=== PATIENT | male | born 1980 | race Two or more races ===

== ENCOUNTER 2017-06-22 13:00 | Emergency (ER) | payer BC ==
[2017-06-22 13:14] VITALS: BMI 41.8
[2017-06-22 13:35] VITALS: TEMP 98.5
--- NOTE | 2017-06-22 13:42 | PDOC ---
History of Present Illness - General Chief Complaint: Blood Pressure Problem Stated Complaint: HTN Time Seen by Provider: 06/22/17 13:10 History Source: Patient Exam Limitations: No Limitations - History of Present Illness Initial Comments: 06/22/17 13:37 36y M hx of s/p gastric bypass, htn (previously on meds, but now controlled w/ diet) presents with htn - the pt states he has recently been feeling flushed, lightheaded, tingling extremities which he attributes to his HTN - he has been checking his BP and notes it has been elevated to the 140s/100s, he took his fathers norvasc this morning but bp was 160s-170s so he came to the ED for evaluation. the pt also endorses occaisonal non exertional cp (typically at night) that is worse when he is lying on his side. 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 pts PMD is dr. webber social: former smoker, does not use any recrational drugs Past History - Past Medical History Allergies/Adverse Reactions: Allergies Allergy/AdvReac Type Severity Reaction Status Date / Time No Known Allergies Allergy Verified 06/22/17 13:14 Home Medications: Ambulatory Orders NK [No Known Home Medication] 06/22/17 Anemia: No Asthma: Yes Cancer: No Cardiac Disorders: No CVA: No COPD: Yes CHF: No Dementia: No Diabetes: No GI Disorders: No Disorders: No HTN: Yes Hypercholesterolemia: No Liver Disease: Yes (cirrhosis) Seizures: No Thyroid Disease: No - Surgical History Abdominal Surgery: No Appendectomy: No Cardiac Surgery: No Cholecystectomy: No Lung Surgery: No Neurologic Surgery: No Orthopedic Surgery: No - Suicide/Smoking/Psychosocial Hx Smoking Status: Yes Smoking History: Former smoker Have you smoked in the past 12 months: No Number of Cigarettes Smoked Daily: 0 Information on smoking cessation initiated: No Hx Alcohol Use: No Drug/Substance Use Hx: No Substance Use Type: None Hx Substance Use Treatment: No Review of Systems - Review of Systems Able to Perform ROS?: Yes Comments:: 06/22/17 13:39 Constitutional - no reported Fever, Chills, HEENT: no reported vision changes, sore throat Respiratory: no reported cough, sob, hemoptysis Cardiac: + light headedness,chest pain, no reported palpitations, leg swelling Abd/GI: no reported abd pain, nausea, vomiting, blood per rectum, melena, diarrhea : no reported dysuria, frequency, discharge Musculskelatal - no reported back pain, joint swelling skin - no reported bruising, erythema, rash neurological: +extermity tingling no reported headache, numbness, focal weakness , ataxia, hematologic: no reported anemia, easy bruising, easy bleeding *Physical Exam - Vital Signs Last Vital Signs Temp Pulse Resp BP Pulse Ox 98.5 F 87 13 150/112 100 06/22/17 13:25 06/22/17 13:25 06/22/17 13:25 06/22/17 13:25 06/22/17 13:25 - Physical Exam Comments: 06/22/17 13:41 GENERAL: The patient is awake, alert, and fully oriented, Nontoxic - in no acute distress. HEAD: Normocephalic, atraumatic. EYES: extraocular movements intact, sclera anicteric, conjunctiva clear. ENT: Normal voice, Moist mucous membranes. NECK: Normal range of motion, supple LUNGS: Breath sounds equal, clear to auscultation bilaterally. No wheezes, no rhonchi, no rales. HEART: Regular rate and rhythm, normal S1 and S2 without murmur, rub or gallop. ABDOMEN: Soft, nontender, normoactive bowel sounds. No guarding, no rebound. . No CVA tenderness EXTREMITIES: Normal range of motion, no edema. No clubbing or cyanosis. No cords, erythema, or tenderness. NEUROLOGICAL: No facial assymetry, Normal speech, PSYCH: Normal mood, normal affect. SKIN: Warm, Dry, normal turgor, Heart Score/ECG Review - ECG Impressions Comment:: 06/22/17 14:48 Twelve-lead EKG was performed and reviewed by me. There is normal sinus rhythm with a normal rate. Rate of 92 The axis is normal. The intervals are normal. There is normal R wave progression There are no ST or T wave abnormalities. Impression: Normal twelve-lead EKG ED Treatment Course - LABORATORY CBC & Chemistry Diagram: 06/22/17 14:00 06/22/17 14:00 Medical Decision Making - Medical Decision Making 06/22/17 13:41 suspect htn, his cp seems msk - no exertional or sypmtmos suggestive of acs will obtain ekg will ck labs to r/o anemia, metabolic dernagement pts spb is slightly high here but anticipate d/c with pmd fu and will have pt monitor bp as outpatient 06/22/17 14:46 The patient's blood work is unremarkable Will discharge the patient follow-up with his primary care doctor Return precautions were discussed I discussed the physical exam findings, ancillary test results and final diagnoses with the patient. I answered all of the patient's questions. The patient was satisfied with the care received and felt comfortable with the discharge plan and treatment plan. The patient will call their primary care physician within 24 hours to arrange follow-up and will return to the Emergency Department with any new, persistent or worsening symptoms. *DC/Admit/Observation/Transfer Diagnosis at time of Disposition: Hypertension Qualifiers: Hypertension type: essential hypertension Qualified Code(s): I10 - Essential ( primary) hypertension - Discharge Dispostion Disposition: HOME Condition at time of disposition: Improved Admit: No - Referrals Referrals: Govind Webber MD [Primary Care Provider] - - Patient Instructions Printed Discharge Instructions: DI for High Blood Pressure, How to Monitor Your Blood Pressure at Home Additional Instructions: Return to the emergency department immediately with ANY new, persistent or worsening symptoms. Please keep a log of your blood pressures, follow up with your primary care doctor to evaluate your need for medical treatment of your blood pressure You MUST call and follow up with your doctor tomorrow for further evaluation of your symptoms. Results were discussed with you. Please make sure your doctor reviews the results of your emergency evaluation. Print Language: BURMESE
[2017-06-22 14:17] LABS: MCH 30.8 pg (25.7-33.7); MCHC 34.1 g/dl (32.0-35.9); MEAN CELL VOLUME 90.4 fl (80-96); MEAN PLT VOLUME 7.6 fl (7.5-11.1); PLATELET COUNT 250 K/MM3 (134-434); RDW 13.6 % (11.9-15.9); WHITE BLOOD COUNT 8.1 K/mm3 (4.0-10.0)
[2017-06-22 14:27] LABS: ALBUMIN 4.1 g/dl (3.4-5.0); ALK PHOS 104 U/L (45-117); ANION GAP 6 (8-16); BILIRUBIN,TOTAL 0.4 mg/dL (0.2-1.0); CALCIUM 9.4 mg/dL (8.5-10.1); CO2 28 mmol/L (21-32); GLUCOSE,RANDOM 94 mg/dL (74-106); SGOT/AST 26 U/L (15-37); SGPT/ALT 47 U/L (12-78); TOT PROT 7.9 g/dl (6.4-8.2)
[2017-06-22 15:14] VITALS: BP 149/106; PULSE 72
--- NOTE | 2017-06-22 20:10 | EKG ---
Test Reason : Blood Pressure : / mmHG Vent. Rate : 092 BPM Atrial Rate : 092 BPM P-R Int : 188 ms QRS Dur : 100 ms QT Int : 356 ms P-R-T Axes : 029 -14 011 degrees QTc Int : 440 ms NORMAL SINUS RHYTHM NORMAL ECG WHEN COMPARED WITH ECG OF 09-MAY-2013 20:32, NO SIGNIFICANT CHANGE WAS FOUND REPEAT EKG IF CLINICALLY INDICATED Confirmed by NIEVES RUEDA MD ([id number]) on 06/22/2017 8:09:48 PM Referred By: Confirmed By:NIEVES RUEDA MD
== END 2017-06-22 15:14 | disposition home or self-care (01) ==
LOC: JER 13:00
DX: I10 Essential (primary) hypertension (principal); J45.909 Unspecified asthma, uncomplicated; J44.9 Chronic obstructive pulmonary disease, unspecified; Z87.891 Personal history of nicotine dependence; Z98.84 Bariatric surgery status
CPT/HCPCS: 36415; 80053; 85027; 93005; 93010; 99283-25